=== PATIENT | male | born 1965 | race African-American/Black ===

== ENCOUNTER 2017-12-13 04:16 | Emergency (ER) | payer OTHER ==
[~2017-12-13] VITALS: Ht 180.3 cm; Wt 94.3 kg
[2017-12-13] MEDS ORDERED: MOTRIN800 MG PO (06:03)
[2017-12-13] MEDS ORDERED: CIPRODEX OTIC7.5 ML LEFT EAR (06:03)
[2017-12-13] MEDS ORDERED: PROMETHAZINE HC25 M1 PO (06:03)
[2017-12-13 06:24] VITALS: BP 140/81
== END 2017-12-13 06:24 | disposition home or self-care (01) ==
LOC: EME 04:16
DX: R51 Headache (principal); H60.92 Unspecified otitis externa, left ear; K08.89 Other specified disorders of teeth and supporting structures
CPT/HCPCS: 99281; 99284; J1885; J2550